=== PATIENT | female | born 1990 | race Two or more races ===

== ENCOUNTER 2019-03-06 14:56 | Emergency (ER) | payer OTHER ==
[~2019-03-06] VITALS: Ht 157.5 cm; Wt 79.4 kg
[2019-03-06 19:27] VITALS: BP 122/65
== END 2019-03-06 19:31 | disposition home or self-care (01) ==
LOC: ER 14:56
DX: S09.8XXA Other specified injuries of head, initial encounter (principal); X58.XXXA Exposure to other specified factors, initial encounter; Y93.89 Activity, other specified; Y92.89 Other specified places as the place of occurrence of the external cause; Y99.8 Other external cause status
CPT/HCPCS: 70450